=== PATIENT | male | born 1985 | race Hispanic/Latino ===

== ENCOUNTER 2019-11-02 10:29 | Outpatient (CLI) | payer BC ==
--- NOTE | 2019-11-02 11:24 | RAD ---
Cervical spine 5 views: 11/02/2019 COMPARISON: None HISTORY: Cervical radiculopathy, pain FINDINGS: Open-mouth odontoid view demonstrates a normal-appearing dens and C1-2 articulation. Cervic al vertebral body height and alignment appears normal on the frontal view. Lateral exam in the neutral position demonstrates no anterolisthesis or retrolisthesis. No prevertebr al soft tissue swelling. No significant anterolisthesis or retrolisthesis noted on flexion or extension views. IMPRESSION: No acute findings. If there are radicular symptoms, cervical spine MRI advised.
== END 2019-11-02 10:30 | disposition home or self-care (01) ==
LOC: RAD 10:29
PROVIDERS: ATTEND Nurse Practitioner Family
DX: M54.12 Radiculopathy, cervical region (principal)
CPT/HCPCS: 72050